=== PATIENT | male | born 1995 | race Caucasian/White ===

== ENCOUNTER 2024-06-05 08:45 | Emergency (ER) | payer OTHER, SELFPAY ==
[2024-06-05] VITALS (10 sets, daily range): BP systolic 116–144; BP diastolic 68–87; PULSE 49–71; TEMP 36.4; O2SAT 98–100; BMI 30.1
--- NOTE | 2024-06-05 08:54 | ECG_ITS ---
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
--- NOTE | 2024-06-05 09:01 | XR_ITS ---
The [address] [address] Patient Name: [facility] MRN: [id number] date: 1995 Sex: M Assigned Patient Location: ER Current Patient Location: ED.MAIN Accession/Order Number: [id number] Exam Date: 06/05/2024 09:11 Report Date: 06/05/2024 09:43 At the request of: ANNABELLA ROBLES Procedure: XR chest 2V EXAMINATION: XR chest 2V HISTORY: chest pain COMPARISON: No relevant comparison available. TECHNIQUE: PA and lateral FINDINGS: LUNGS: No significant pulmonary parenchymal abnormalities. VASCULATURE: No increased pulmonary vasculature. PLEURA: No pneumothorax, effusion, or pleural thickening. CARDIAC: No cardiomegaly or cardiac silhouette abnormality. MEDIASTINUM: No visible mass or adenopathy. BONES: No fracture or visible bone lesion. OTHER: Negative. XR/XR chest 2V IMPRESSION: No acute cardiopulmonary process Electronically authenticated by: WONG MORENO Date: 06/05/2024 09:43
--- NOTE | 2024-06-05 09:14 | ED.GENADUL1 ---
HPI HPI - General Adult General Chief complaint: Chest Pain Stated complaint: CHEST PAIN Time Seen by Provider: 06/05/24 09:13 Source: patient History of Present Illness HPI narrative: Patient is a 28-year-old male who is presenting to the ER today with chief complaint no chest pain. Patient has no recent traveling, is a non-smoker. Patient recently just had his third child 2 months ago. No other stress or anxiety, patient states his third child sleeps well, he does not have feel stress anxiety. Patient has intermittent sharp pain with no radiation to the left side of his chest for the past 4 to 5 days. Patient has no family history of early heart attacks early cardiac disease at early age. Patient has no abdominal pain nausea vomiting. Patient started carnivore diet on May 16, patient works out 3-4 times a week regularly as well, good physical build. Patient has no abdominal pain nausea vomiting. Patient does not have the pain at this time. Patient came into the ER to be safe because his symptoms are not going away and patient states he is will headed. No medical history. No acute complaints. No cocaine use. Heart score 0. PERC 0. Patient has no history of acid reflux or heartburn. All systems are negative except as noted/marked. All systems reviewed and otherwise negative. Nurses note and vital signs reviewed and patient is not hypoxic. General: The patient appears well and in no apparent distress. Patient is resting comfortably on cart. Patient is not toxic, lethargic, or listless Skin: Warm, dry, no pallor noted. There is no rash noted. No petechiae, purpura. Head: Normocephalic, atraumatic Eye: Normal conjunctiva, no drainage, EOMI. PERRL Ears, Nose, Mouth, and Throat: oral mucosa is moist. Nares patent. Mouth without vesicles. Cardiovascular: Regular Rate and Rhythm, no murmur, gallop, rub. Patient has no reproducible tenderness to palpation, to the anterior, lateral, posterior chest wall. No midepigastric tenderness to palpation Respiratory: Patient is in no distress, no accessory muscle use, lungs are clear to auscultation, no wheezing, rales or rhonchi Back: non-tender, no CVA tenderness bilaterally to percussion. No CT LS midline pain GI: no tenderness to palpation, no masses appreciated. No rebound, guarding, or rigidity noted. No distention. No midepigastric tenderness to palpation. Musculoskeletal: Patient has full range of motion of all of the extremities, no motor, sensory, or focal neurological deficits Neurological: A&O x4, normal speech Psychiatric: Cooperative Related Data Allergies Allergy/AdvReac Type Severity Reaction Status Date / Time No Known Drug Allergies Allergy Verified 06/05/24 08:52 Opioid HPI Opioid Management Most Recent Opioid Data: No Data to Display PFSH PFSH Social History Little interest or pleasure in doing things: not at all Feeling down, depressed, or hopeless: not at all Exam Constitutional Vital Signs, click to edit/add: Last Vital Signs Temp 97.6 F 06/05/24 08:47 Pulse 49 L 06/05/24 09:50 Resp 13 06/05/24 09:50 BP 121/82 06/05/24 09:45 Pulse Ox 98 06/05/24 09:50 Course Vital Signs Vital signs: Vital Signs Temperature 97.6 F 06/05/24 08:47 Pulse Rate 61 06/05/24 08:47 Respiratory Rate 18 06/05/24 08:47 Blood Pressure 144/87 H 06/05/24 08:47 Pulse Oximetry 99 06/05/24 08:47 Temperature 97.6 F 06/05/24 08:47 Pulse Rate 49 L 06/05/24 09:50 Respiratory Rate 13 06/05/24 09:50 Blood Pressure 121/82 06/05/24 09:45 Pulse Oximetry 98 06/05/24 09:50 Medical Decision Making MDM Narrative Medical decision making narrative: Patient is heart score 0, PERC 0. Troponin, D-dimer, chest x-ray, EKG are negative. Patient will follow-up with PCP, education on risk factors were discussed at bedside and on discharge paperwork. Patient will follow-up with PCP if symptoms continue for further cardiac testing. Patient was very pleasant to take care of. Lab Data Lab results reviewed: Yes I reviewed the patient's lab results Labs: Lab Results 06/05/24 Range/Units 09:00 WBC 5.1 (4.0-11.0) 10^3/uL RBC 5.06 (4.70-6.10) 10^6/uL Hgb 14.6 (14.0-18.0) g/dL Hct 42.4 (42.0-54.0) % MCV 83.8 (80.0-94.0) fL MCH 28.9 (25.9-34.0) pg MCHC 34.4 (29.9-35.2) g/dL RDW 12.9 (11.0-15.0) % Plt Count 245 (150-450) 10^3/uL MPV 10.0 (9.5-13.5) fL Neut % (Auto) 49.4 (43.0-75.0) % Lymph % (Auto) 32.0 (20.5-60.0) % [place] % (Auto) 14.0 H (1.7-12.0) % Eos % (Auto) 3.6 (0.9-7.0) % Baso % (Auto) 0.8 (0.2-2.0) % Neut # (Auto) 2.5 (1.4-6.5) 10^3/uL Lymph # (Auto) 1.6 (1.2-3.8) 10^3/uL [place] # (Auto) 0.7 (0.3-0.8) 10^3/uL Eos # (Auto) 0.2 (0.0-0.7) 10^3/uL Baso # (Auto) 0.0 (0.0-0.1) 10^3/uL Abs Immat Gran (auto) 0.01 (0.00-0.03) 10^3/uL Imm/Tot Granulo (auto) 0.2 (0.0-0.5) % D-Dimer 0.23 (<=0.59) mg/L FEU Sodium 141 (136-145) mmol/L Potassium 3.9 (3.5-5.1) mmol/L Chloride 103 (98-107) mmol/L Carbon Dioxide 28.5 (21.0-32.0) mmol/L Anion Gap 13.4 BUN 10.0 (7.0-18.0) mg/dL Creatinine 1.18 (0.70-1.30) mg/dL Est GFR ( Amer) >60 (>=60 mL/min/1.73m^2) Est GFR (Non-Af Amer) >60 (>=60 mL/min/1.73m^2) BUN/Creatinine Ratio 8.5 Glucose 99 (74-106) mg/dL Calcium 9.3 (8.5-10.1) mg/dL Total Bilirubin 0.4 (0.2-1.0) mg/dL AST 21 (15-37) U/L ALT 20 (16-63) U/L Alkaline Phosphatase 80 (46-116) U/L Troponin I High Sens 6.8 (4.0-76.1) pg/mL Total Protein 7.5 (6.4-8.2) g/dL Albumin 3.9 (3.4-5.0) g/dL Globulin 3.6 g/dL Albumin/Globulin Ratio 1.1 ECG Data Attestation: I personally reviewed and interpreted this ECG as follows: (EKG interpretation. Normal sinus rhythm at 53 beats a minute. Normal axis deviation. No acute ST elevation, no acute ectopy. QTc of 388.) Discharge Plan Discharge Chief Complaint: Chest Pain Clinical Impression: Atypical chest pain Patient Disposition: Home, Self-Care Time of Disposition Decision: 09:49 Condition: Fair Print Language: Palestinian Instructions: Chest Pain (ED), Chest Wall Pain (ED) Additional Instructions: Your heart score is 0, you have no DVT or blood clot risk factors. If chest pain continues, follow-up with your PCP for outpatient stress test or echocardiogram as indicated. Referrals: LAZARA TRAVIS [Primary Care Provider] - 1 week
[2024-06-05 09:21] LABS: Basophils Percent Auto 0.8 % (0.2-2.0); Eosinophils Absolute Auto 0.2 10^3/uL (0.0-0.7); Eosinophils Percent Auto 3.6 % (0.9-7.0); Hematocrit 42.4 % (42.0-54.0); Hemoglobin 14.6 g/dL (14.0-18.0); Immature Granulocytes Abs Auto 0.01 10^3/uL (0.00-0.03); Immature Granulocytes Pct Auto 0.2 % (0.0-0.5); Lymphocytes Absolute Auto 1.6 10^3/uL (1.2-3.8); Mean Corpuscular HGB Conc 34.4 g/dL (29.9-35.2); Mean Corpuscular Hemoglobin 28.9 pg (25.9-34.0); Mean Corpuscular Volume 83.8 fL (80.0-94.0); Monocytes Absolute Auto 0.7 10^3/uL (0.3-0.8); Neutrophils Absolute Auto 2.5 10^3/uL (1.4-6.5); Neutrophils Percent Auto 49.4 % (43.0-75.0); Platelet Count 245 10^3/uL (150-450); Red Blood Count 5.06 10^6/uL (4.70-6.10); Red Cell Distribution Width 12.9 % (11.0-15.0); White Blood Count 5.1 10^3/uL (4.0-11.0)
[2024-06-05 09:25] LABS: Alanine Aminotransferase 20 U/L (16-63); Albumin Globulin Ratio 1.1; Albumin Level 3.9 g/dL (3.4-5.0); Alkaline Phosphatase 80 U/L (46-116); Anion Gap 13.4; Aspartate Amino Transferase 21 U/L (15-37); BUN Creatinine Ratio 8.5; Bilirubin Total 0.4 mg/dL (0.2-1.0); Calcium 9.3 mg/dL (8.5-10.1); Carbon Dioxide 28.5 mmol/L (21.0-32.0); Chloride 103 mmol/L (98-107); Estimated GFR (African America >60 (>=60 mL/min/1.73m^2); Estimated GFR (Non-African Ame >60 (>=60 mL/min/1.73m^2); Globulin 3.6 g/dL; Glucose 99 mg/dL (74-106); Potassium 3.9 mmol/L (3.5-5.1); Sodium 141 mmol/L (136-145); Total Protein 7.5 g/dL (6.4-8.2)
[2024-06-05 09:27] LABS: D Dimer 0.23 mg/L FEU (<=0.59)
[2024-06-05 09:28] LABS: Troponin I High Sensitivity 6.8 pg/mL (4.0-76.1)
== END 2024-06-05 10:19 | disposition home or self-care (01) ==
PROVIDERS: Emergency Provider Emergency Medicine; PCP Internal Medicine
DX: R07.89 Other chest pain (principal)
CPT/HCPCS: 36415; 71046; 80053; 84484; 85025; 85378; 93005; 99285